=== PATIENT | female | born 1970 | race Caucasian/White ===

== ENCOUNTER → 2018-03-21 13:05 | Outpatient (CLI) | payer MEDICARE, MEDICAID, SELFPAY ==
[2018-03-21 14:04] LABS: INR 3.1 (0.9-1.3)
== END ==
DX: Z79.01 Long term (current) use of anticoagulants (principal)
CPT/HCPCS: 36415; 85610

== ENCOUNTER → 2018-04-18 14:49 | Outpatient (CLI) | payer MEDICARE, MEDICAID, SELFPAY ==
[2018-04-18 15:56] LABS: INR 3.1 (0.9-1.3); Prothrombin Time 33.8 SECONDS (10.1-12.7)
== END ==
PROVIDERS: PCP Nurse Practitioner; Visit Provider Nurse Practitioner
DX: Z79.01 Long term (current) use of anticoagulants (principal)
CPT/HCPCS: 36415; 85610

== ENCOUNTER → 2018-05-13 11:23 | Outpatient (CLI) | payer MEDICARE, MEDICAID, SELFPAY ==
[2018-05-13 12:26] LABS: INR 3.3 (0.9-1.3)
== END ==
PROVIDERS: PCP Nurse Practitioner; Visit Provider Nurse Practitioner
DX: Z79.01 Long term (current) use of anticoagulants (principal)
CPT/HCPCS: 36415; 85610

== ENCOUNTER → 2018-06-14 16:25 | Outpatient (CLI) | payer MEDICARE, MEDICAID, SELFPAY ==
[2018-06-14 16:57] LABS: INR 1.7 (0.9-1.3); Prothrombin Time 18.7 SECONDS (10.1-12.7)
== END ==
PROVIDERS: PCP Nurse Practitioner; Visit Provider Nurse Practitioner
DX: Z79.1 Long term (current) use of non-steroidal anti-inflammatories (NSAID) (principal)
CPT/HCPCS: 36415; 85610

== ENCOUNTER 2018-12-28 12:26 | Emergency (ER) | payer MEDICARE, MEDICAID, SELFPAY ==
[2018-12-28 12:42] VITALS: BP 113/72; PULSE 96; RESP 20; TEMP 36.5; O2SAT 97
--- NOTE | 2018-12-28 13:09 | DI.RAD.S_ITS ---
PROCEDURE: XR CHEST 1V INDICATIONS: cough, fever TECHNIQUE: One view of the chest was acquired. COMPARISON: None. FINDINGS: Surgical changes and devices: None. Lungs and pleura: Increased perihilar interstitial markings are identified which are slightly more prominent within the right suprahilar region. No lobar consolidation, large effusion, or pneumothorax is evident. Mediastinum: Mediastinal contours appear normal. Heart size is normal. Bones and chest wall: No suspicious bony lesions. Overlying soft tissues appear unremarkable. IMPRESSION: 1. Probable developing right upper lobe pneumonia. A followup chest radiograph is recommended in 3-4 weeks to document resolution. 2. Possible mild pulmonary edema. Dictated by: Marco Bahena M.D. on 12/28/2018 at 12:52 Approved by: Marco Bahena M.D. on 12/28/2018 at 12:53
--- NOTE | 2018-12-28 13:12 | ED_ITS ---
HPI - URI/Sore Throat <RUTHIE Muñoz - Last Filed: 12/28/18 15:38> General Chief Complaint: Upper Respiratory Symptoms Stated Complaint: low blood pressure Time Seen by Provider: 12/28/18 13:00 Source: patient and family Mode of arrival: ambulatory Limitations: no limitations History of Present Illness HPI Narrative: The patient is a 48-year-old female with history of Down syndrome who presents with her family for chief complaint of low blood pressures at home. They noted her home blood pressure reading was 80/50 several times. Family states she started having cold symptoms 2 days ago including sore throat, low- grade temperatures a productive cough. The patient denies any abdominal pain, nausea vomiting or diarrhea. Related Data Home Medications Medication Instructions Recorded Confirmed allopurinol 300 mg PO DAILY 12/28/18 12/28/18 atorvastatin 10 mg PO DAILY 12/28/18 12/28/18 calcium carbonate [Tums] 200 mg PO BID 12/28/18 12/28/18 cholecalciferol (vitamin D3) 5,000 unit PO BID 12/28/18 12/28/18 [Vitamin D3] ferrous gluconate 324 mg PO TID 12/28/18 12/28/18 gabapentin 300 mg PO TID 12/28/18 12/28/18 levothyroxine 50 mcg PO DAILY 12/28/18 12/28/18 magnesium 250 mg PO DAILY 12/28/18 12/28/18 ranitidine HCl 150 mg PO BEDTIME 12/28/18 12/28/18 warfarin 2.5 mg PO DAILY 12/28/18 12/28/18 Previous Rx's Medication Instructions Recorded albuterol sulfate [Ventolin HFA] 2 puff INHALATION Q4-6H PRN #18 12/28/18 gram doxycycline hyclate 100 mg PO BID #20 cap 12/28/18 Allergies Allergy/AdvReac Type Severity Reaction Status Date / Time No Known Drug Allergies Allergy Verified 12/28/18 12:45 Review of Systems <RUTHIE Muñoz - Last Filed: 12/28/18 15:38> Review of Systems GENERAL: See HPI HEENT: See HPI RESPIRATORY: See HPI CARDIOVASCULAR: Denies chest pain, palpitations, orthopnea, edema, GASTROINTESTINAL: Denies nausea, vomiting, abdominal pain, diarrhea, constipation, melena. : Denies dysuria, frequency, incontinence, hematuria, urinary retention. MUSCULOSKELETAL: denies weakness, joint pain, or bony pain SKIN: Denies rash, skin lesions, or other NEUROLOGIC: Denies weakness, headache, numbness, change in speech, confusion, seizures, incoordination. PSYCHIATRIC: No concerning psychosocial issues. 12 point review of systems is negative except for those stated above PFSH <RUTHIE Muñoz - Last Filed: 12/28/18 15:38> Medical History (Updated 12/28/18 @ 15:08 by RUTHIE Muñoz) Down syndrome (Acute) Social History Smoking Status: Never smoker Social History Smoking Status: Never smoker Exam <RUTHIE Muñoz - Last Filed: 12/28/18 15:38> Narrative Exam Narrative: GENERAL: This is a well-nourished, well-developed patient, in no acute distress HEAD: Atraumatic. Normocephalic. No temporal or scalp tenderness. EYES: Pupils equal round and reactive. Extraocular motions intact. No scleral icterus. No injection or drainage. ENT: Nose without bleeding, purulent drainage or septal hematoma. Throat without erythema, tonsillar hypertrophy or exudate. Uvula midline. Airway patent. NECK: Trachea midline. No JVD or lymphadenopathy. Supple, nontender, no meningeal signs. CARDIOVASCULAR: Regular rate and rhythm without murmurs, gallops, or rubs. RESPIRATORY: Clear to auscultation. Breath sounds equal bilaterally. No wheezes, rales, or rhonchi. Occasional cough exam. No accessory muscle use. No stridor. No retractions. GASTROINTESTINAL: Abdomen soft, non-tender, nondistended. No hepato- splenomegaly, or palpable masses. No guarding. Active bowel sounds.. EXTREMITIES: No clubbing, cyanosis, or edema. No joint tenderness, effusion, or edema noted. BACK: Nontender without deformity or crepitance. No flank tenderness. NEURO: Alert. Interactive. SKIN: No rash or erythema. Ecchymosis noted right posterior chest wall Initial Vital Signs Initial Vital Signs: Vital Signs Temperature 97.7 F 12/28/18 12:42 Pulse Rate 96 H 12/28/18 12:42 Respiratory Rate 20 12/28/18 12:42 Blood Pressure 113/72 12/28/18 12:42 Pulse Oximetry 97 12/28/18 12:42 <DO Kira Mccullough Last Filed: 12/29/18 07:22> Initial Vital Signs Initial Vital Signs: Vital Signs Temperature 97.7 F 12/28/18 12:42 Pulse Rate 96 H 12/28/18 12:42 Respiratory Rate 20 12/28/18 12:42 Blood Pressure 113/72 12/28/18 12:42 Pulse Oximetry 97 12/28/18 12:42 Course <RUTHIE Muñoz - Last Filed: 12/28/18 15:38> Orders Ordered: Discontinued Medications Albuterol (Ventolin) 2.5 mg INH NOW ONE Stop: 12/28/18 14:25 Last Admin: 12/28/18 14:26 Dose: 2.5 mg Vital Signs - 8 hr 12/28/18 12:42 12/28/18 13:30 12/28/18 14:00 Temperature 97.7 F Pulse Rate 96 H 85 88 Respiratory Rate 20 18 22 Blood Pressure 113/72 Blood Pressure [Right Arm] 100/66 104/63 Pulse Oximetry 97 90 L 93 12/28/18 14:30 12/28/18 15:03 Temperature Pulse Rate 91 H 86 Respiratory Rate 18 Blood Pressure Blood Pressure [Right Arm] 113/67 Pulse Oximetry 90 L 96 <DO Kira Mccullough Last Filed: 12/29/18 07:22> Orders Ordered: Discontinued Medications Albuterol (Ventolin) 2.5 mg INH NOW ONE Stop: 12/28/18 14:25 Last Admin: 12/28/18 14:26 Dose: 2.5 mg Vital Signs - 8 hr 12/28/18 12:42 12/28/18 13:30 12/28/18 14:00 Temperature 97.7 F Pulse Rate 96 H 85 88 Respiratory Rate 20 18 22 Blood Pressure 113/72 Blood Pressure [Right Arm] 100/66 104/63 Pulse Oximetry 97 90 L 93 12/28/18 14:30 12/28/18 15:03 Temperature Pulse Rate 91 H 86 Respiratory Rate 18 Blood Pressure Blood Pressure [Right Arm] 113/67 Pulse Oximetry 90 L 96 MDM - URI/Sore Throat <RUTHIE Muñoz - Last Filed: 12/28/18 15:38> Lab Data Point of Care Testing Rapid Strep A Negative Imaging Data Chest x-ray: Radiologist's impression: Nakita Back 48 F [address] [address] XRay Report Signed Patient: Nakita Back [facility]#: [id number] : 1970Acct:[id number] Age/Sex: 48 / FDate of Service: 12/28/18 Loc: ED Accession Number: [id number] Procedure: XR chest 1V Ordering Provider: Delfina Howell PROCEDURE: XR CHEST 1V INDICATIONS: cough, fever TECHNIQUE: One view of the chest was acquired. COMPARISON: None. FINDINGS: Surgical changes and devices: None. Lungs and pleura: Increased perihilar interstitial markings are identified which are slightly more prominent within the right suprahilar region. No lobar consolidation, large effusion, or pneumothorax is evident. Mediastinum: Mediastinal contours appear normal. Heart size is normal. Bones and chest wall: No suspicious bony lesions. Overlying soft tissues appear unremarkable. IMPRESSION: 1. Probable developing right upper lobe pneumonia. A followup chest radiograph is recommended in 3-4 weeks to document resolution. 2. Possible mild pulmonary edema. Dictated by: Marco Bahena M.D. on 12/28/2018 at 12:52 Approved by: Marco Bahena M.D. on 12/28/2018 at 12:53 [facility] Narrative Medical decision making narrative: The patient is a 48-year-old female with Down syndrome who presents with her sister for chief complaint of hypotension. Patient maintained good blood pressures throughout her stay in the emergency department. Given her recent URI symptoms, as well as cough with fever I did get a chest CT which showed pneumonia. The patient was given a nebulizer treatment in the emergency department, which she stated made her feel much i mproved. The patient remained alert oriented and interactive throughout her stay in the emergency department. I did place her on doxycycline to give her antibiotic coverage for pneumonia, and encouraged family to monitor for bleeding and follow-up regarding her INR. I gave him contact information to the [facility] resources representative as well. Discussed at length coming back to the emergency department for any acute concerns such as shortness of breath, chest pain etc. No questions or concerns upon discharge. <Delfina Sterling DO - Last Filed: 12/29/18 07:22> Lab Data Point of Care Testing Rapid Strep A Negative Discharge Plan Departure Patient Disposition: Home Clinical Impression: Community acquired pneumonia Qualifiers: Laterality: right Lung location: upper lobe of lung Qualified Code(s): J18.1 - Lobar pneumonia, unspecified organism Discharge Date/Time: 12/28/18 15:15 Interventions: ED Discharge Assessment Last Done: 12/28/18 15:15 Instructions: DI for Pneumonia -- Adult Activity Restrictions/Additional Instructions: Thank you for trusting us with Nakita's care today. Nakita has good blood pressures, but had pneumonia on her chest x-ray. I am starting her on antibiotics and gave her a prescription of an inhaler to use with a spacer. I have given you contact information for that [facility] resources representative, who can help her arrange follow-up care. Please follow up with a primary care provider. Please monitor for bleeding while on the antibiotics, as doxycycline can interact with Coumadin. Please use sunscreen while on the antibiotic. Please come back to the emergency department for any acute concerns such as chest pain, shortness of breath etc Prescriptions: New doxycycline hyclate 100 mg capsule 100 mg PO BID Qty: 20 RF: 0 albuterol sulfate [Ventolin HFA] 90 mcg/actuation HFA aerosol inhaler 2 puff INHALATION Q4-6H PRN (Reason: shortness of breath or wheezing) Qty: 18 RF: 0 No Action levothyroxine 50 mcg Tablet 50 mcg PO DAILY RF: 0 atorvastatin 10 mg Tablet 10 mg PO DAILY RF: 0 warfarin 2.5 mg Tablet 2.5 mg PO DAILY RF: 0 ranitidine HCl 150 mg Tablet 150 mg PO BEDTIME RF: 0 calcium carbonate [Tums] 200 mg calcium (500 mg) Tablet,Chewable 200 mg PO BID RF: 0 gabapentin 300 mg Capsule 300 mg PO TID RF: 0 allopurinol 300 mg Tablet 300 mg PO DAILY RF: 0 magnesium 250 mg Tablet 250 mg PO DAILY RF: 0 cholecalciferol (vitamin D3) [Vitamin D3] 1,000 unit Tablet 5,000 unit PO BID RF: 0 ferrous gluconate 324 mg (37.5 mg iron) Tablet 324 mg PO TID RF: 0 Referrals: [facility] [Outside] <Delfina Sterling DO - Last Filed: 12/29/18 07:22> Cosign ED Attending Cosignature Attestation: I was immediately available in the department for consultation. This documentation has been reviewed. Supervised by Delfina Sterling DO
[2018-12-28 13:30] VITALS: BP 100/66; PULSE 85; RESP 18; O2SAT 90
[2018-12-28 14:00] VITALS: BP 104/63; PULSE 88; RESP 22; O2SAT 93
[2018-12-28] MEDS: ALBUTEROL 2.5 MG/3 ML NEB (ADULT) INH (14:26)
[2018-12-28 14:30] VITALS: PULSE 91; RESP 18; O2SAT 90
[2018-12-28 15:03] VITALS: BP 113/67; PULSE 86; O2SAT 96
== END 2018-12-28 15:15 | disposition home or self-care (01) ==
PROVIDERS: Emergency Provider Nurse Practitioner Family
DX: J18.1 Lobar pneumonia, unspecified organism (principal)
CPT/HCPCS: 71045; 87880; 94640; 99283; J7613

== ENCOUNTER → 2019-02-06 09:01 | Outpatient (CLI) | payer MEDICARE, MEDICAID, SELFPAY ==
--- NOTE | 2019-02-06 09:04 | DI.RAD.S_ITS ---
PROCEDURE: XR CHEST 2V INDICATIONS: Follow-up pneumonia resolution TECHNIQUE: 2 views of the chest were acquired. COMPARISON: [facility], CR, XR CHEST 1V, 12/28/2018, 13:16. FINDINGS: Surgical changes and devices: None. Lungs and pleura: Improved aeration of the right mid lung and right lung base since 12/28/18. Mild residual patchy and ill-defined groundglass opacities persist.. No pleural effusions or pneumothorax. Mediastinum: Mediastinal contours are normal. Heart size is normal. Bones and chest wall: No suspicious bony abnormalities. Soft tissues appear unremarkable. IMPRESSION: Improvement in right midlung and basilar pneumonia since 12/28/18. No new focal consolidation. Mild residual ill-defined bibasilar ground glass opacities could represent chronic interstitial disease/scarring although if clinically indicated, continued radiographic surveillance to document long-term stability or resolution could be performed. Dictated by: iGno Howard M.D. on 02/06/2019 at 16:13 Approved by: Gino Howard M.D. on 02/06/2019 at 16:15
== END ==
PROVIDERS: PCP Nurse Practitioner Family; Visit Provider Nurse Practitioner Family
DX: J18.9 Pneumonia, unspecified organism (principal)
CPT/HCPCS: 71046